=== PATIENT | male | born 1955 | race Caucasian/White ===

== ENCOUNTER 2019-09-11 13:52 | Observation (INO) ==
[2019-09-11] MEDS ORDERED: ASPIRIN CHEWABLE PO STA (14:16)
[2019-09-11] MEDS ORDERED: PROTONIX PO STA (14:16)
[2019-09-11] MEDS ORDERED: DUONEB NEB STA (14:16)
[2019-09-11] MEDS ORDERED: SOLU-MEDROL 125 MG IVP STA (14:16)
--- NOTE | 2019-09-11 14:22 | ED.PDOC ---
General ED Provider: Dr. CHIKA COLEMAN MD Chief Complaint: Hypertension Stated Complaint: mild to mod nonrad anterior chest pain fullness, no injury, mild short of breath, hx copd and cabg, no fever Time Seen by Physician: 14:19 Mode of Arrival: Walk-In Information Source: Patient Primary Care Provider: MEI PATTERSON MD Nursing and Triage Documentation Reviewed and Agree: Yes Does patient meet sepsis criteria?: No System Inflammatory Response Syndrome: Not Applicable Sepsis Protocol: For patient's 13 years and over: Temp is 96.8 and below OR 101 and greater Pulse >90 BPM Resp >20/minute Acutely Altered Mental Status Are patient's symptoms suggestive of a new infection, such as: -Pneumonia -Skin, Soft Tissue -Endocarditis -UTI -Bone, Joint Infection -Implantable Device -Acute Abdominal Infection -Wound Infection -Meningitis -Blood Stream Catheter Infection -Unknown Cardiovascular Complaint Exam Chest Pain Complaint/Exam Onset: Gradual Duration: few days Symptoms Are: Still present Timing: Intermittent Initial Severity: Mild Current Severity: Mild Location: Reports Midsternal Pain Radiates: Reports None Character: Reports Tightness Associated Signs and Symptoms: Denies Vomiting and Dizziness Review of Systems Review Of Systems Constitutional: Denies Fever Eyes: Denies Vision change Ears, Nose, Mouth, Throat: Denies Throat pain Respiratory: Reports Short of air; Denies Cough Cardiac: Reports Chest pain GI: Denies Abdominal pain Musculoskeletal: Denies Back pain Skin: Denies Rash and Cyanosis Neurological: Denies Cognitive dysfunction All Other Systems: Other [facility] Medical History Arthritis (Acute) Chronic laryngitis (Acute) Headache (Acute) Heart disease (Acute) Hoarseness (Acute) Hypertension (Acute) S/P triple vessel bypass (Acute) Seasonal allergies (Acute) Shortness of breath (Acute) Tobacco use (Acute) Social History Smoking and tobacco status: Current every day smoker Passive smoking exposure: Yes Quit status: considering quitting Second hand smoke exposure: Yes Smoking risk assessment performed: No Alcohol intake: never Substance use type: marijuana Counseling given: No Household members: none Marital status: D Lives independently: Yes Daycare: no daycare Highest education level completed: some college, no degree senior living: No Current occupational status: employed Do you think of yourself as: straight/heterosexual Current gender identity: male Seatbelt use: always Physical Exam Physical Exam Appearance: Reports Well-appearing Ill-appearing: None Pain Distress: None Eyes: Reports Conjunctiva clear ENT: Denies Rhinorrhea Neck: Supple Respiratory: Reports Breath sounds clear Cardiovascular: Reports RRR GI/: Reports Nontender Musculoskeletal: Reports ROM intact Skin: Reports Warm and Dry Neurological: Reports Sensation intact Psychiatric: Reports Affect appropriate Interpretation Radiology Interpretation Radiology Interpretation By: Radiologist Radiology Results: No acute changes Exam Interpreted: CXR EKG Interpretation Time of EKG #1: 16:05 Rate: Normal Rhythm: Sinus Interpretation: no stemi Re-Evaluation Re-Evaluation Time of Re-Evaluation: 16:05 Status: Improved Vital Signs Stable: Yes Appearance: NAD Lungs: Clear Neuro: Alert and Oriented X3 CV: RRR Additional Comments: pt improved, no chest pain now, admit d/w Dr Moreno Critical Care Note Critical Care Note Total Time (mins): 0 Course Course Hematology/Chemistry: 09/11/19 14:28 09/11/19 14:28 Orders, Labs, Meds: Lab Review 09/11/19 09/11/19 09/11/19 14:28 14:28 14:28 WBC 7.28 RBC 5.28 Hgb 16.5 Hct 48.0 MCV 90.9 MCH 31.3 H MCHC 34.4 RDW Coeff of Bettina 13.7 Plt Count 144 Immature Gran % (Auto) 0.3 Neut % (Auto) 57.8 Lymph % (Auto) 27.7 [place] % (Auto) 10.3 H Eos % (Auto) 3.4 Baso % (Auto) 0.5 Immature Gran # (Auto) 0.0 Neut # (Auto) 4.2 Lymph # (Auto) 2.0 [place] # (Auto) 0.8 Eos # (Auto) 0.3 Baso # (Auto) 0.0 Sodium 136.3 Potassium 3.69 Chloride 97.0 L Carbon Dioxide 30.8 H Anion Gap 12.19 BUN 14.1 Creatinine 1.09 Estimated GFR (MDRD) 68.00 BUN/Creatinine Ratio 12.93 Glucose 156.3 H Calcium 9.59 Magnesium Total Bilirubin 0.51 AST 36.4 ALT 25.7 Alkaline Phosphatase 71.0 Total Creatine Kinase 67.5 Troponin I < 0.012 < 0.012 Total Protein 7.52 Albumin 4.49 Globulin 3.03 Albumin/Globulin Ratio 1.48 Lipase 43.9 09/11/19 14:28 WBC RBC Hgb Hct MCV MCH MCHC RDW Coeff of Bettina Plt Count Immature Gran % (Auto) Neut % (Auto) Lymph % (Auto) [place] % (Auto) Eos % (Auto) Baso % (Auto) Immature Gran # (Auto) Neut # (Auto) Lymph # (Auto) [place] # (Auto) Eos # (Auto) Baso # (Auto) Sodium Potassium Chloride Carbon Dioxide Anion Gap BUN Creatinine Estimated GFR (MDRD) BUN/Creatinine Ratio Glucose Calcium Magnesium 2.17 Total Bilirubin AST ALT Alkaline Phosphatase Total Creatine Kinase Troponin I Total Protein Albumin Globulin Albumin/Globulin Ratio Lipase Orders Category Date Time Status EKG-(ED ONLY) Stat CARDIO 09/11/19 14:16 Completed EKG-(IP & OP ONLY) DAILY CARDIO 09/12/19 06:00 Ordered EKG-(IP & OP ONLY) DAILY CARDIO 09/13/19 06:00 Ordered EKG-(IP & OP ONLY) Stat CARDIO 09/11/19 16:08 Completed NEBULIZER TREATMENT Routine CARDIO 09/11/19 16:09 Active NEBULIZER TREATMENT Stat CARDIO 09/11/19 14:16 Completed OXYGEN Routine CARDIO 09/11/19 16:08 Completed ACTIVITY .BR with BRP CARE 09/11/19 16:08 Active INSERT SALINE LOCK ONCE CARE 09/11/19 16:08 Active INTAKE & OUTPUT Q8HR CARE 09/11/19 16:09 Active TELEMETRY MONITORING TELE CARE 09/11/19 16:08 Active VITAL SIGNS Q8HR CARE 09/11/19 16:08 Active VITAL SIGNS Q8HR CARE 09/11/19 16:09 Completed CARDIAC DIET DIETARY 09/11/19 Dinner Ordered CBC W/ AUTO DIFF Stat LAB 09/11/19 14:28 Completed COMPREHENSIVE METABOLIC PANEL Stat LAB 09/11/19 14:28 Completed CREATINE KINASE Q8H LAB 09/11/19 14:28 Completed CREATINE KINASE Q8H LAB 09/12/19 00:15 Ordered LIPASE Stat LAB 09/11/19 14:28 Completed TROPONIN I Q8H LAB 09/11/19 14:28 Completed TROPONIN I Q8H LAB 09/12/19 00:15 Ordered TROPONIN I Stat LAB 09/11/19 14:28 Completed URINALYSIS C & S IF INDICATED Stat LAB 09/11/19 16:08 Uncollected 0.9 % Sodium Chloride [Saline Flush] MEDS 09/11/19 21:00 Active 1 syr IVF Q8HR Acetaminophen [Tylenol] MEDS 09/11/19 16:08 Active 650 mg PO Q4H PRN Aspirin [Aspirin Chewable] MEDS 09/11/19 14:16 Discontinued 324 mg PO ONCE STA Aspirin [Aspirin EC] MEDS 09/12/19 08:00 Active 81 mg PO DAILYWM Aspirin [Aspirin EC] MEDS 09/11/19 16:30 Discontinued 81 mg PO QDAY Atropine Sulfate Inj [Atropine Sulfate Pfs] MEDS 09/11/19 16:08 Active 0.5 mg IVP ONCE PRN Hydroxyzine HCl [Vistaril Inj] MEDS 09/11/19 16:08 Active 25 mg IM Q4H PRN Ipratropium/Albuterol Neb [Duoneb] MEDS 09/11/19 14:16 Discontinued 3 ml NEB ONCE STA Ipratropium/Albuterol Neb [Duoneb] MEDS 09/11/19 18:00 Active 3 ml NEB RTQ6H Methylprednisolone Sod Succ/Pf [Solu-Medrol 125 mg] MEDS 09/11/19 14:16 Discontinued 125 mg IVP ONCE STA Nitroglycerin [Nitrostat] MEDS 09/11/19 16:08 Active 0.4 mg SL Q5MIN X 3 DOSES PRN Pantoprazole Sodium [Protonix] MEDS 09/11/19 14:16 Discontinued 40 mg PO ONCE STA RESUSCITATION STATUS Routine OTHERS 09/11/19 16:08 Ordered CHEST, 1V AP ONLY Stat RADS 09/11/19 14:16 Completed Medications Generic Name Dose Route Start Last Admin Trade Name Freq PRN Reason Stop Dose Admin Acetaminophen 650 mg 09/11/19 16:08 Tylenol PO Q4H PRN Headache Albuterol/Ipratropium 3 ml 09/11/19 18:00 Duoneb NEB RTQ6H VISHAL Aspirin 81 mg 09/12/19 08:00 Aspirin Ec PO DAILYWM VISHAL Atropine Sulfate 0.5 mg 09/11/19 16:08 Atropine Sulfate Pfs IVP ONCE PRN Symptomatic Bradycardia Hydroxyzine HCl 25 mg 09/11/19 16:08 Vistaril Inj IM Q4H PRN Nausea/Vomiting/Restlessness Nitroglycerin 0.4 mg 09/11/19 16:08 Nitrostat SL Q5MIN X 3 DOSES PRN Chest Pain Sodium Chloride 1 syr 09/11/19 21:00 Saline Flush IVF Q8HR VISHAL Discontinued Medications Generic Name Dose Route Start Last Admin Trade Name Freq PRN Reason Stop Dose Admin Albuterol/Ipratropium 3 ml 09/11/19 14:16 09/11/19 14:37 Duoneb NEB 09/11/19 14:17 3 ml ONCE STA Administration Aspirin 324 mg 09/11/19 14:16 09/11/19 14:36 Aspirin Chewable PO 09/11/19 14:17 324 mg ONCE STA Administration Aspirin 81 mg 09/11/19 16:30 Aspirin Ec PO QDAY VISHAL Methylprednisolone Sodium Succinate 125 mg 09/11/19 14:16 09/11/19 14:39 Solu-Medrol 125 Mg IVP 09/11/19 14:17 125 mg ONCE STA Administration Pantoprazole Sodium 40 mg 09/11/19 14:16 09/11/19 14:36 Protonix PO 09/11/19 14:17 40 mg ONCE STA Administration Vital Signs: Temp Pulse Resp BP Pulse Ox 09/11/19 13:52 97.0 F L 100 H 18 156/105 H 98 JIMI Risk Score JIMI Risk Score: Risk Score Odds of by 30D 0 0.1 (0.1-0.2) 1 0.3 (0.2-0.3) 2 0.4 (0.3-0.5) 3 0.7 (0.6-0.9) 4 1.2 (1.0-1.5) 5 2.2 (1.9-2.6) 6 3.0 (2.5-3.6) 7 4.8 (3.8-6.1) Discharge Plan Discharge Patient Disposition: PLACED OBSERVATION Discharge Problem: Chest pain Qualifiers: Chest pain type: precordial pain Qualified Code(s): R07.2 - Precordial pain ED Provider: CHIKA COLEMAN Condition: Stable Discharge Date/Time: 09/11/19 16:33
--- NOTE | 2019-09-11 14:36 | DI ---
EXAM: CHEST FRONTAL VIEW HISTORY: Shortness of breath. COMPARISON: None FINDINGS: Heart size and mediastinum within normal limits. Sternotomy wires are noted. No acute infiltrates are seen. No vascular congestion. There is no consolidation, visible pleural fluid or pneumothorax. Bones reveal no acute fracture. IMPRESSION: No acute cardiopulmonary process.
[2019-09-11] MEDS ORDERED: TYLENOL PO PRN (16:08)
[2019-09-11] MEDS ORDERED: ATROPINE SULFATE PFS IVP PRN (16:08)
[2019-09-11] MEDS ORDERED: NITROSTAT SL PRN (16:08)
[2019-09-11] MEDS ORDERED: VISTARIL INJ IM PRN (16:08)
[2019-09-11] MEDS ORDERED: ASPIRIN EC PO SCH (16:30)
[2019-09-11 17:09] VITALS: BMI 24.3
[2019-09-11] MEDS ORDERED: DUONEB NEB SCH (18:00)
--- NOTE | 2019-09-11 18:21 | CT ---
EXAM: CT of the chest without contrast History: Chest pain. Comparison: Chest radiograph 09/10/2013, CT soft tissue neck 09/10/2024 Technique: Multiplanar CT images through the thorax were obtained following administration of IV con trast Findings: Heart size is normal. No pericardial effusion. Sternotomy wires. No thoracic aortic ane urysm. No pathologically enlarged thoracic lymph nodes. No consolidation. No pleural fluid and no pneumothorax. No suspicious lung masses or lung nodules. Partially calcified pleural plaque within the left upper hemithorax. Within the visualized upper abdomen, no grossly acute findings. No acute osseous abnormalities. Deg enerative changes of the spine Impression: 1. No acute intrathoracic process. 2. 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
--- NOTE | 2019-09-11 18:24 | CT ---
EXAM: CT of the soft tissue neck without contrast History: Laryngitis. Technique: Multiplanar CT images through the soft tissue neck were obtained without the administrati on of IV contrast Findings: The visualized upper lungs are clear. No acute osseous abnormalities. Severe degenerative changes within the cervical spine. No prevertebral soft tissue swelling. Epiglottis is not thicken ed. 2.3 cm mucous retention cyst within the left maxillary sinus. No discrete thyroid nodules are i dentified by CT. No parotid masses and no parotid inflammation. Submandibular glands are unremarkab le. No peritonsillar inflammation. Evaluation for lymph nodes is limited due to lack of contrast ad ministration but no bulky pathologically enlarged lymph nodes are seen. Impression: 1. No acute findings within the soft tissue neck. 2. Left maxillary sinus mucous retention cyst. 3. Severe arthritis of the cervical spine
[2019-09-12] MEDS ORDERED: ASPIRIN EC PO SCH (08:00)
[2019-09-12] MEDS: COREG PO SCH ×2 (10:05→16:33)
--- NOTE | 2019-09-12 11:11 | STRESSECHO ---
Date of Test: 09/12/2019 Ordering Physician: DR. 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 Reason for Exam: HYPERTENSION, CHEST PAIN, TRIPLE BYPASS 2007 Smoking History: 1/2 PK/DAY Height: 66" Weight: 150 LBS Current Medications: ASA, HCTZ, DIAZEPAM Resting EKG: SINUS RHYTHM/ LEFT VENTRICULAR HYPERTROPHY/ POOR "R" WAVE PROGRESSION/ PULMONARY DISEASE Target Heart Rate: 133/157 S-T SEGMENT STAGE MPH/GRADE HEART RATE BPM BLOOD PRESSURE MMHG RHYTHM +/- ELEVATION DEPRESSION SYMPTOMS AT REST 97 BPM 122/62 MMHG SR X NONE 1 1.7/10% 2 2.5/12% 3 3.4/14% 4 4.2/16% 5 5.0/18% Immediately After 146 BPM SR X BILATERAL SHOULDER PAIN Minutes Post Exercise 1:00 120 BPM 148/50 MMHG SR X NO PAIN Minutes Post Exercise 5:00 100 BPM 130/64 MMHG SR X NONE DURATION OF EXERCISE: 2:01 MAXIMUM HEART RATE REACHED: 146 BPM REASON FOR TERMINATION: BILATERAL SHOULDER PAIN 95% OXYGEN SATURATION WITH EXERCISE ON ROOM AIR METS 4.6 INTERPRETATION: 1. TEST POSITIVE FOR ISCHEMIC ST-T WAVE CHANGES 2. BILATERAL SHOULDER PAIN WITH EXERCISE--RELIEVED BY REST IN ONE MINUTE 3. CLAUDICATION WITHIN A MINUTE OF BEING ON TREADMILL 4. BLOOD PRESSURE RESPONSE: ADEQUATE 5. ISOLATED PVC'S AT REST AND WITH EXERCISE HYPOKINETIC SEPTUM RESTING AND POST EXERCISE MTDD
--- NOTE | 2019-09-12 11:25 | ECHOSTRESS ---
Date of Exam: 09/12/2019 Ordering Physician: DR. MEI WARD Reason for Echo: CHEST PAIN, TRIPLE BYPASS, HYPERTENSION, STRESS TEST--POSITIVE FOR ISCHEMIC ST-T WAVE CHANGES M-Mode Normal Adult Results LV Dimensions Normal Adult Results AoV Opening excursions >1.6 LVEDD-base- 3.5-5.8 Ao root dimensions 2.0-3.7 LVESD-base- 3.1-4.6 L. Atrium dimensions 1.9-3.8 Post. Wall thickness 0.8-1.1 IV septum (thickness) 0.7-1.2 Post. Wall excursion 0.72-1.3 Septal motion Systolic motion R. Ventricular cavity 1.5-2.0 LVEF 60% Paradoxical septal wall motion 2-D: HYPOKINETIC SEPTAL WALL RESTING AND POST EXERCISE M-MODE: MV: AV: TV: PV: CHAMBER SIZE: HYPOKINETIC SEPTAL WALL RESTING AND POST EXERCISE WALL MOTION: PERICARDIUM: INTERPRETATION: 1. HYPOKINETIC SEPTAL WALL RESTING AND POST EXERCISE MTDD
--- NOTE | 2019-09-12 11:33 | ECHO2D ---
Date of Exam: 09/12/2019 Ordering Physician: DR. MEI WARD Room #: [id number] Reason for Echo: HTN, CHEST PAIN, TRIPLE BYPASS M-Mode Normal Adult Results LV Dimensions Normal Adult Results AoV Opening excursions >1.6 >1.6 LVEDD-base- 3.5-5.8 5.0 Ao root dimensions 2.0-3.7 3.3 LVESD-base- 3.1-4.6 L. Atrium dimensions 1.9-3.8 4.3 Post. Wall thickness 0.8-1.1 1.0 IV septum (thickness) 0.7-1.2 1.1 Post. Wall excursion 0.72-1.3 NORMAL Septal motion 0.3 Systolic motion R. Ventricular cavity 1.5-2.0 NORMAL LVEF 60% 42% Paradoxical septal wall motion NORMAL 2-D : 2-D M Mode Echocardiogram was performed using apical four chamber and left parasternal long and short axis views. Mitral, tricuspid and aortic valves appear to be normal. Left ventricle normal size. ENLARGED LEFT ATRIAL CAVITY SIZE. Aortic root appears to be normal. There is no pericardial effusion. There is no thrombus noted in the left ventricle or left atrial cavity. No mitral valve prolapse noted. HYPOKINETIC SEPTUM M-MODE: MV: MAYBE MITRAL VALVE PROLAPSE AV: NORMAL TV: NORMAL PV: NORMAL CHAMBER SIZE: ENLARGED LEFT ATRIAL CAVITY WALL MOTION: HYPOKINETIC SEPTUM PERICARDIUM: NORMAL INTERPRETATION: 1. HYPOKINETIC SEPTUM EJECTION FRACTION 40 TO 45% 2. ENLARGED LEFT ATRIAL CAVITY 3. NORMAL VALVES MTDD
--- NOTE | 2019-09-12 11:45 | DI ---
EXAM: Chest frontal view HISTORY: Chest pain FINDINGS: Compared to 09/11/2019. Heart size is within normal limits. Sternotomy wires are noted. There is at least mild atherosclerotic disease. No acute infiltrates are seen. No vascular congest ion. There is no consolidation, visible pleural fluid or pneumothorax. Bones reveal no acute fractu re. IMPRESSION: There is at least mild atherosclerotic disease. No acute cardiopulmonary process.
[2019-09-12] MEDS ORDERED: LIPITOR PO SCH (12:00)
--- NOTE | 2019-09-12 12:18 | CONS ---
DATE OF CONSULTATION: 09/11/19 HISTORY OF PRESENT ILLNESS: 64-year-old white male presented to [facility] ER with complaints of hypertension, mild to moderate non radiating anterior chest pain, mild shortness of breath. He has a history of COPD and bypass. He denied any fever. This has been going on for the past two to three days. He reports the chest pain is intermittent. It occurs with activity and at rest. The pain is present across the top part of his back. It radiates down both arms. He reports the pain as a tightness. It is also burning and has some tingling. He reports this pain is different than any pain experienced previously prior to his bypass. EKG in the ER showed sinus rhythm. CBC, CMP, troponins, chest x-ray were all done in ER. REVIEW OF SYSTEMS: CONSTITUTIONAL: Denies fever. No night sweats. No fatigue, malaise, lethargy. No chills. HEENT: Eyes: No visual changes. No eye pain. No eye discharge. ENT: No sinus drainage. No epistaxis. No sinus pain. No sore throat. No odynophagia. No ear pain. No congestion. RESPIRATORY: Mild shortness of air. Denies cough, no congestion. No hemoptysis. CARDIOVASCULAR: Chest tightness anteriorly and posteriorly that radiates down bilateral arms. This is also described as burning and tingling. No CHF symptoms. No atypical chest pain for CAD. No palpitations. No orthopnea. GASTROINTESTINAL: Complains of nausea but denies vomiting. No abdominal pain. No diarrhea or constipation. No hematemesis. No hematochezia. GENITOURINARY: No urgency. No frequency. No dysuria. No hematuria. No obstructive symptoms. No discharge. No pain. No significant abnormal bleeding. MUSCULOSKELETAL: No musculoskeletal pain. No joint swelling. NEUROLOGICAL: No headache. No neck pain. No syncope. No seizures. No dizziness. PSYCHIATRIC: Not anxious. No depression. No suicidal thoughts. No homicidal thoughts. SKIN: No rash. No lesions. No wounds. ENDOCRINE: No unexplained weight loss. No weight gain. HEMATOLOGIC/LYMPHATIC: No anemia. No purpura. No petechiae. No prolonged or excessive bleeding. No palpable lymph nodes. MEDICATIONS: (HOME) Diazepam 2 mg p.o. q.6-8hr p.r.n. Multivitamin one tab p.o. q.day Aspirin 81 mg p.o. q.day Cyanocobalamin 50 mcg p.o. q.day Hydrochlorothiazide 12.5 mg p.o. q.day #30 ALLERGIES: NKDA PAST MEDICAL HISTORY: Arthritis Chronic laryngitis Headache Coronary artery disease Hoarseness Hypertension Seasonal allergies Shortness of breath Chronic lung disease Smoker PAST SURGICAL HISTORY: Coronary artery bypass grafting times three SOCIAL/PERSONAL/FAMILY HISTORY: He is . He lives with his mother. He is a current every day smoker. He reports occasional use of marijuana. He denies any alcohol intake. PHYSICAL EXAMINATION: VITAL SIGNS: Temperature 97.6, pulse 109, respirations 18, blood pressure 144/78, pulse ox 97. HEENT: Head normocephalic, atraumatic. Eyes: Extraocular muscles are intact. Pupils are equal, round and reactive to light and accommodation. Ears: No lesions. Nose appeared normal. Throat: No exudate or erythema. NECK: Supple. No JVD, no carotid bruit. No lymphadenopathy or thyromegaly. LUNGS: Diminished breath sounds with bilateral expiratory wheezing. Percussion note normal. Chest symmetrical. HEART: S1, S2, no S3. No murmurs. No cyanosis or clubbing. No ascites. Pulses: Dorsalis pedis and posterior tibial pulses +1 to +2 bilaterally. ABDOMEN: Soft. Nontender. Bowel sounds active. No CVA tenderness. No mass felt. EXTREMITIES: No edema. Full range of motion of all extremities, equal. NEUROLOGIC: No focal deficit. Cranial nerves II through XII are grossly intact. No headache, no double vision or headache. SKIN: Not dry. Intact. Turgor - normal. LYMPHATIC: No palpable lymph nodes/no lymphedema. MUSCULOSKELETAL: Normal joints with no swelling. Muscle tone is normal. White blood count 7.28, hemoglobin 16.5, hematocrit 48, platelets 144. Sodium 136.3, potassium 3.69, BUN 14.1, creatinine 1.09, AST 36.4, ALT 25.7, troponins have been negative. 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 CT of the soft tissue neck without contrast showed no acute findings within the soft tissue neck. Left maxillary sinus mucous retention cyst. Severe arthritis with cervical spine. Chest x-ray showed no acute cardiopulmonary process. ASSESSMENT: 1. ATYPICAL CHEST PAIN, NONCARDIAC RELATED. 2. HISTORY OF CORONARY ARTERY BYPASS GRAFT. 3. DYSLIPIDEMIA. 4. CHRONIC LUNG DISEASE. 5. SMOKER. 6. HYPERTENSION. RECOMMENDATIONS: 1. Echocardiogram and Stress echocardiogram done today. 2. Continue telemetry. 3. Continue serial EKGs and cardiac markers. 4. Continue oximetry. 5. Coreg 6.25 mg b.i.d. 6. Counseled for smoking cessation and marijuana cessation. Counseled on dyslipidemia, diet and nutrition. 7. Followup with primary care physician. This patient was seen and examined with Dr. Enriquez. Plan was discussed. MARCIAL
--- NOTE | 2019-09-12 13:25 | CONS ---
DATE OF CONSULTATION: 09/12/2019 REASON FOR CONSULTATION: Chest pain HISTORY OF PRESENT ILLNESS: 64 year old white male hospitalized through the emergency room with bilateral shoulder pain and pain across the upper part of the chest, nonexertional duration of several days with mild shortness of breath. REVIEW OF SYSTEMS: CONSTITUTIONAL: No night sweats. No fatigue, malaise, lethargy. No fever or chills. HEENT: Eyes: No visual changes. No eye pain. No eye discharge. ENT: No sinus drainage. No epistaxis. No sinus pain. No sore throat. No odynophagia. No ear pain. No congestion. RESPIRATORY: Mild cough as usual, no congestion. No hemoptysis. No shortness of breath. CARDIOVASCULAR: No angina symptoms. No CHF symptoms. Nonexertional chest pain. No palpitations. No orthopnea. GASTROINTESTINAL: No abdominal pain. No nausea or vomiting. No diarrhea or constipation. No hematemesis. No hematochezia. GENITOURINARY: No urgency. No frequency. No dysuria. No hematuria. No obstructive symptoms. No discharge. No pain. No significant abnormal bleeding. MUSCULOSKELETAL: No musculoskeletal pain. No joint swelling. NEUROLOGICAL: No headache. No neck pain. No syncope. No seizures. No dizziness. PSYCHIATRIC: Not anxious. No depression. No suicidal thoughts. No homicidal thoughts. SKIN: No rash. No lesions. No wounds. ENDOCRINE: No unexplained weight loss. No weight gain. HEMATOLOGIC/LYMPHATIC: No anemia. No purpura. No petechiae. No prolonged or excessive bleeding. No palpable lymph nodes. MEDICATIONS: Diazepam 2mg PO Q 6-8 hours Multivitamin one tablet PO daily Aspirin 81mg PO daily Vitamin B12 50 mcg PO daily Hydrochlorothiazide 12.5mg PO daily ALLERGIES: No known drug allergies PHYSICAL EXAMINATION: GENERAL: The patient is oriented to time, place and person. HEENT: Head normocephalic, atraumatic. Eyes: Extraocular muscles are intact. Pupils are equal, round and reactive to light and accommodation. Ears: No lesions. Nose appeared normal. Throat: No exudate or erythema. NECK: Supple. No JVP, no carotid bruit. No lymphadenopathy or thyromegaly. LUNGS: Clear to auscultation. Percussion note normal. Chest symmetrical. HEART: S1, S2, no S3. No murmurs. No cyanosis or clubbing. No ascites. Pulses: Dorsalis pedis and posterior tibial pulses +1 to +2 bilaterally. ABDOMEN: Soft. Nontender. Bowel sounds active. No CVA tenderness. No mass felt. EXTREMITIES: No edema. Full range of motion of all extremities, equal. NEUROLOGIC: No focal deficit. Cranial nerves II through XII are grossly intact. No headache, no double vision or headache. SKIN: Not dry. Intact. Turgor - normal. LYMPHATIC: No palpable lymph nodes/no lymphedema. MUSCULOSKELETAL: Normal joints with no swelling. Muscle tone is normal. LABS: EKG sinus rhythm. P pulmonale, poor R wave progression, old intraseptal wall and intraventricular conduction delay. Cardiac markers are negative. ASSESSMENT: 1. Chest pain, non-exertional 2. Bilateral shoulder and chest pain 3. History of coronary artery bypass surgery, 2006 4. Dyslipidemia 5. Hypertension 6. Heavy smoker 7. Chronic lung disease 8. Noncompliance on followup and lifestyle RECOMMENDATIONS: 1. The patient had stress echo performed which was positive for ischemia with low exercise level the patient had bilateral shoulder pain with exercise test. Echo showed hypokinetic septal wall with ejection fraction 40-45%, mild LA cavity enlargement. 2. The patient has Dyslipidemia with non-HDL more than 170. The patient needs RV angiogram 3. Start Lipitor 40mg PO daily side effects discussed 4. Counseling for smoking done 5. Coreg 6.25mg BID, resting heart rate is 90 per minute 6. Restart Zestril 5mg PO daily 7. Aspirin a day Case discussed with Dr. Moreno on the phone. Thanks for referral. MARCIAL
--- NOTE | 2019-09-12 13:35 | US ---
EXAM: Carotid ultrasound HISTORY: Hypertension, near-syncope COMPARISON: None TECHNIQUE: Carotid ultrasound was performed using Duplex imaging with darnell scale, color, and Doppler imaging performed. FINDINGS: Right carotid: There is mild atherosclerotic plaque in the common carotid and bulb/internal carotid artery. Peak systolic velocity measurement in the right internal carotid artery is 0.6 meters per se cond. End-diastolic velocity measurement in the right internal carotid artery is 0.13 meters per sec ond. Right internal to common carotid artery peak systolic velocity ratio is 1.0. Flow in the right vertebral artery is antegrade. Left carotid: There is mild atherosclerotic plaque in the common carotid and bulb/internal carotid a rtery. Peak systolic velocity measurement in the left internal carotid artery is 0.87 meters per sec ond. End-diastolic velocity measurement in the left internal carotid artery is 0.32 meters per secon d. Left internal to common carotid artery peak systolic velocity ratio measures 1.0. Flow in the le ft vertebral artery is antegrade. IMPRESSION: 1. Right internal carotid: No evidence for greater than 50% stenosis. 2. Left internal carotid: No evidence for greater than 50% stenosis.
--- NOTE | 2019-09-12 17:07 | SSS ---
DATE OF SERVICE: 09/11/19 (ADMIT) 09/12/19 (DISCHARGE) The patient was admitted on 09/11/19 and currently awaiting a call from the Transfer Center at [place], [place]. CHIEF COMPLAINT: Chest pain. SOURCE OF HISTORY: The patient. The patient is not a very good historian. HISTORY OF PRESENT ILLNESS: He did claim that he had tightness across his chest more so in the last three days with some shortness of breath but no diaphoresis or nausea. He came to the office while I was not in the office so he was directed to go to the emergency room. The patient at the emergency room had a normal troponin, a normal CK and the electrocardiogram showed some changes but not acute, maybe old but there is no record of him in this emergency room. He was then admitted under observation for further studies and serial cardiac enzymes and isoenzymes. PAST PERSONAL HISTORY: The patient had triple bypass in 2006. His laborer brush clearing then was Dr. Daniel Colon and the surgeon was Dr. Eliecer Harmon. He was initially seen at the clinic August 20, 2019. His recorded problems were laryngitis, chronic, seen Dr. Carter, an ear, nose and throat doctor. He claimed that he had this laryngitis since about last year. Heart disease with bypass, 2006, triple. Hoarseness with the laryngitis, hypertension and shortness of breath. Chronic tobacco use and some joint pains, arthritis. PAST SURGICAL HISTORY: The patient had triple bypass [address] Eliecer Harmon, was done at [facility] in [place]. FAMILY HISTORY: Mother had colon carcinoma, COPD and father also had malignancy. The patient however does not know what kind of cancer and what organ was involved. 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 The patient was taking Lisinopril from that visit and the patient was advised to stop it because of the hoarseness and cough and maybe that might help the problem. He was initiated on Hydrochlorothiazide 12.[address] chest CT as well as CT of the soft tissue of the neck was ordered however it could not be accomplished including a CT scan of the head since it needed precertification. Substance use aside from prescribed medications, marijuana. SOCIAL HISTORY: The patient is and lives alone. He is still smoking and continues to smoke. No alcohol intake. He claimed that he never drank alcohol. ALLERGIES: NKDA REVIEW OF SYSTEMS: CONSTITUTIONAL: No reports of fever or chills. No fatigue. 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 Denies any syncopal disorder or seizure disorder. Visual: Denies any blurred vision, double vision or loss of vision. Auditory: Decreased hearing otherwise no tinnitus, no pain, no drainage. RESPIRATORY: Some slight shortness of breath with exertion. No hemoptysis. He has chronic cough. CARDIOVASCULAR: The patient does feel some tightness in the chest and pain across the chest. He also has some pain in both shoulders. The patient had not had any syncopal episodes or diaphoresis. GASTROINTESTINAL: No nausea, anorexia or dysphagia. No abdominal pain. No change in bowel habits. GENITOURINARY: Denies any pain or frequency of urination. MUSCULOSKELETAL: The patient does have some arthritis involving joints but denies any swelling or redness. INTEGUMENT: Denies any rash or pruritus. ENDOCRINE: No history of diabetes. Denies any polyuria or polydipsia. HEMATOLOGIC: Denies any excessive bleeding or prolonged bleeding episodes with any injuries. Denies any history of blood dyscrasias in the family. PSYCHIATRIC: The patient is alert, oriented. Affect appears to be normal and cooperative. ASSESSMENT: 1. CHEST PAIN, PROBABLY ANGINA. 2. HISTORY OF CORONARY ARTERY DISEASE POST BYPASS, TRIPLE, 2007, [place]. 3. HISTORY OF HYPERTENSION. 4. HISTORY OF CHRONIC LARYNGITIS MORE THAN A YEAR DURATION SEEN BY EAR, NOSE AND THROAT. 5. HISTORY OF HEADACHES. 6. CHRONIC TOBACCO USE AND ABUSE PERSISTENT. 7. HISTORY OF MARIJUANA USE. 8. HISTORY OF SOME ARTHRITIS. HOSPITAL COURSE: The patient's vital signs were stable and the patient did undergo stress echocardiogram by Dr. Endy Enriquez, our local laborer brush clearing. The stress test was positive for ischemia and also some wall motion abnormality in the septum. Ejection fractin is between 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 No acute cardiopulmonary processes otherwise. Carotid ultrasound less than 50% stenosis of both internal carotids. Chest x-ray times two unremarkable. FINAL DIAGNOSES: 1. CHEST PAIN, ANGINA, PROBABLY STABLE. 2. HISTORY OF CORONARY ARTERY DISEASE STATUS POST BYPASS 2007, [place]. 3. CHRONIC TOBACCO USE AND ABUSE, PERSISTENT. 4. HYPERTENSION, CONTROLLED. 5. PLEURAL PLAQUE, LEFT UPPER CHEST. The patient's case was discussed with Dr. Mack, the laborer brush clearing in [place], [place]. He told me that he will get in touch with the transfer center and the transfer center will call me as to the patient's transfer to their hospital and he will be the consulting laborer brush clearing. This patient is placed on Lipitor 40 mg daily as well as Coreg 6.25 mg twice a day. He is already on Hydrochlorothiazide and also placed on Aspirin 81 mg daily. PROGNOSIS: Guarded. TIME SPENT: GREATER THAN 65 MINUTES MTDD
--- NOTE | 2019-09-12 17:15 | PN ---
DATE OF SERVICE: 09/12/19 Conversation with [facility]. I told them that I was sorry that I missed their call. I had my phone with me but I did not hear a ring or any vibration. I looked at my phone and I did see a missed call from [facility]. I did call them back and was able to talk to the transfer center. I had given her the birthday and also the problems that the patient has. She did give me the number to fax the face sheet and I had called the hospital and talked to Tig[facility] and gave Tigist the nurse the number and I assumed this was the number to send the records . She told me that after they get the facesheet that the hospitalist would call me. MARCIAL
[2019-09-12 18:11] VITALS: BP 155/95; TEMP 97
--- NOTE | 2019-09-13 12:40 | CONS ---
The patient was seen on consultation requested by Dr. Moreno. The patient was on observation and seen for the first time. Date of consultation today, 09/12/2019: Level 5 MTDD
== END 2019-09-12 18:00 | disposition short-term general hospital (02) ==
LOC: ED 13:52 → MEDSURG B 13:52
PROVIDERS: ADMIT General Practice; ATTEND General Practice
DX: R06.02 Shortness of breath; M25.512 Pain in left shoulder; F17.210 Nicotine dependence, cigarettes, uncomplicated; J92.9 Pleural plaque without asbestos; J37.0 Chronic laryngitis; M19.90 Unspecified osteoarthritis, unspecified site; J44.9 Chronic obstructive pulmonary disease, unspecified; I10 Essential (primary) hypertension; R51 Headache; I20.9 Angina pectoris, unspecified; F12.90 Cannabis use, unspecified, uncomplicated; I25.810 Atherosclerosis of coronary artery bypass graft(s) without angina pectoris; M25.511 Pain in right shoulder; R05 Cough; Z79.899 Other long term (current) drug therapy